=== PATIENT | female | born 1950 | race Caucasian/White ===

== ENCOUNTER 2019-10-12 15:01 | Emergency (ER) | payer MEDICARE, SELFPAY ==
--- NOTE | 2019-10-12 15:17 | ED.FEVER ---
HPI - Fever General Chief Complaint: Upper Respiratory Infection Stated Complaint: lightheaded,dizzy,cough, throwing up,fever Time Seen by Provider: 10/12/19 15:18 Source: patient Mode of arrival: ambulatory Limitations: no limitations History of Present Illness HPI Narrative: Previously well 68-year-old woman comes in today complaining of fever, cough, fatigue, body aches, nasal congestion and mild cough for 4 days. She states that she add vomiting at the onset but has not had some for 2 days. She has started to improve and has been eating regularly for the last 24 hours however today she felt lightheaded. She has not been back to work. She denies chest pain, shortness breath, productive cough, diarrhea, rash or joint swelling. MD elicited complaint: fever and malaise Onset (ago): day(s) (4) Context: sick contacts ( At work) Relieving factors: rest Associated symptoms: myalgias, nasal congestion, cough, nausea and vomiting Related Data Allergies Allergy/AdvReac Type Severity Reaction Status Date / Time nickel Allergy Intermediate RASH Verified 11/19/13 09:21 Review of Systems Constitutional: Constitutional: Denies chills, Reports fatigue and Reports fever(s) Eyes: Eyes: Denies change in vision and Denies photophobia ENT: Denies dysphagia, Reports nasal congestion and Denies sore throat Cardiovascular: Cardiovascular: Denies chest pain and Denies radiating jaw, neck or arm pain Respiratory: Respiratory: Reports cough, Denies dyspnea and Denies wheezing Gastrointestinal: Gastrointestinal: Denies abdominal pain, Denies diarrhea, Reports nausea and Reports vomiting Genitourinary: Genitourinary: Denies nocturia and Denies dysuria Musculoskeletal: Musculoskeletal: Denies back pain, Reports myalgias, Denies arthralgias and Denies joint swelling Integumentary/Breasts: Skin/Breast: Denies pruritus, Denies erythema and Denies rash Neurologic: Denies vertigo, Reports dizziness and Denies syncope Psychiatric: Psychiatric: Denies anxiety and Denies depression Endocrine: Endocrine: Denies polydipsia and Denies polyuria Hematologic/Lymphatic: Hematologic/Lymphatic: Denies easy bleeding and Denies easy bruising Allergic/Immunologic: Allergic/Immunologic: Denies lip swelling and Denies wheezing PMFSH Past Medical History Medical History History of breast cancer Radiation therapy Surgical History Surgical History S/P lumpectomy, left breast Social History Social History Smoking status: Never smoker Alcohol intake: never Substance use: never Living arrangements: alone Exam Const: General: healthy appearing, no acute distress and alert Nutritional Appearance: obese Orientation/consciousness: patient oriented x3 Limitations: no limitations HENMT: Ears: external ears normal, TM's normal bilaterally and EAC's normal Mouth: Yes Normal oral and palatal mucosa present and Yes moist mucous membranes Throat: posterior oropharynx normal Eyes: Conjunctivae: conjunctivae normal Pupils: Equal, round and reactive pupils present EOM: EOMs intact bilaterally Resp: Effort & Inspection: normal respiratory effort and not labored Auscultation: clear to auscultation bilaterally, no rales, no rhonchi and no wheezes Cardio: Rate: regular rate Rhythm: regular rhythm Heart sounds: no murmurs GI: Inspection: non-distended GI Palp: Yes Soft to palpation and No Tenderness to palpation present (GI) Skin: General skin exam: normal color, no jaundice and no pallor Rashes: no rashes Neuro: General: patient oriented x3, moves all extremities, no focal motor deficits and CN's II-XI intact bilaterally Speech: normal speech Extrem: General: normal to inspection and no clubbing, cyanosis or edema Psych: Appearance: grossly normal and well kempt Mental Status:
[2019-10-12 15:18] VITALS: BP 152/82; PULSE 74; RESP 13; TEMP 36.6; O2SAT 96
[2019-10-12 15:28] VITALS: BP 166/85; PULSE 71
[2019-10-12 15:30] VITALS: BP 152/82; PULSE 74
[2019-10-12 15:32] VITALS: BP 116/56; PULSE 86
[2019-10-12 15:59] LABS: Influenza Control Valid (Valid)
[2019-10-12 16:19] VITALS: RESP 14; O2SAT 97
== END 2019-10-12 16:15 | disposition home or self-care (01) ==
PROVIDERS: Emergency Provider Emergency Medicine; PCP Family Medicine
DX: E86.0 Dehydration (principal); B34.9 Viral infection, unspecified
CPT/HCPCS: 87804; 99283

== ENCOUNTER 2019-12-22 16:14 | Outpatient (CLI) | payer MEDICARE, SELFPAY ==
--- NOTE | ~2019-12-22 | XR_ITS ---
EXAMINATION: XR chest 2V EXAM DATE: 12/22/2019 16:36 INDICATION: Shortness of breath for one month. History of breast cancer. TECHNIQUE: Frontal and lateral projections of the chest obtained and reviewed. Comparison is made to prior examination from 03/25/2015. FINDINGS: Mild hyperinflation. The lungs are clear. There are no pleural effusions. The cardiomedi astinal silhouette is within normal limits. There is no pneumothorax suspected. The bones and soft tissues are unremarkable. IMPRESSION: Mild hyperinflation. Reviewed, dictated and finalized at location A. IMPRESSION: Mild hyperinflation.
== END 2019-12-22 16:15 | disposition home or self-care (01) ==
LOC: CHSIMG 16:19
PROVIDERS: PCP Family Medicine; Visit Provider Family Medicine
DX: R06.00 Dyspnea, unspecified (principal)
CPT/HCPCS: 71046

== ENCOUNTER 2019-12-23 12:30 | Outpatient (CLI) | payer MEDICARE, SELFPAY | END 2019-12-23 12:31 | disposition home or self-care (01) | LOC: CHSCARD 12:31 | PROVIDERS: PCP Family Medicine; Visit Provider Family Medicine | DX: R06.00 Dyspnea, unspecified (principal) | CPT/HCPCS: 94060; 94726; 94729 ==

== ENCOUNTER 2020-01-03 08:02 | Outpatient (CLI) | payer MEDICARE, SELFPAY | END 2020-01-03 08:03 | disposition home or self-care (01) | LOC: CHSCARD 08:03 | PROVIDERS: PCP Family Medicine; Visit Provider Family Medicine | DX: R06.02 Shortness of breath (principal); R94.31 Abnormal electrocardiogram [ECG] [EKG] | CPT/HCPCS: 78452; 93017; A9502; J2785 ==

== ENCOUNTER 2020-03-08 12:28 | Outpatient (CLI) | payer MEDICARE, SELFPAY ==
--- NOTE | ~2020-03-08 | MM_ITS ---
EXAMINATION: MM screening pravin BI w matthew HISTORY: Screening. History of left breast cancer. TECHNIQUE: Craniocaudal and mediolateral oblique 3-D tomosynthesis images were obtained and synthetic 2-D images were generated. CAD analysis was submitted and interpreted. COMPARISON: Comparison to multiple prior studies sequentially, with oldest reviewed study dated 10/04. BREAST PARENCHYMAL COMPOSITION: There are scattered areas of fibroglandular density. FINDINGS: Stable postoperative change in the upper outer quadrant of the left breast. There is no david dence of suspicious mass, calcification, or architectural distortion to suggest malignancy in either breast. There has been no suspicious interval change. IMPRESSION: 1. No mammographic evidence of malignancy. 2. Recommend routine screening mammography in one year. BI-RADS Category 2: Benign finding(s). Reviewed, dictated and finalized at location A.
== END 2020-03-08 12:29 | disposition home or self-care (01) ==
PROVIDERS: PCP Family Medicine; Visit Provider Family Medicine
DX: Z12.31 Encounter for screening mammogram for malignant neoplasm of breast (principal)
CPT/HCPCS: 77063; 77067

== ENCOUNTER 2024-07-08 20:33 | Emergency (ER) | payer MEDICARE, SELFPAY ==
--- NOTE | ~2024-07-08 | CT_ITS ---
EXAMINATION: CT brain wo con DATE: 07/08/2024 21:00 INDICATION: Lightheadedness. TECHNIQUE: Computed tomography (CT) of the head was performed without intravenous contrast. The mA wa s adjusted according to patient size. Iterative reconstruction technique was employed. The dose-lengt h product was 605.33 mGy-cm. COMPARISON: None FINDINGS: There is no intracranial hemorrhage, acute infarction, or abnormal intracranial mass lesion . The ventricles are normal in size. The orbits are normal. There is mucosal thickening in the parana landon sinuses. The mastoid air cells are normal. IMPRESSION: 1. Normal brain. Reviewed, dictated and finalized at location A. DIAL READING TEACHER IMPRESSION: 1. Normal brain.
[2024-07-08 20:35] VITALS: PULSE 65
[2024-07-08 20:37] VITALS: BP 158/82; PULSE 65; RESP 16; TEMP 37; O2SAT 97
--- NOTE | 2024-07-08 20:42 | ECG_ITS ---
Test Date: 2024-07-08 21:09:54 Measurements Intervals [place] Rate: 54 P: 12 OR: 155 QRS: 36 QRSD: 93 T: 15 QT: 412 QTc: 391 Interpretive Statements SINUS BRADYCARDIA BASELINE ARTIFACT- I, II, III, AVR, AVL, AVF BORDERLINE ECG No previous ECG available for comparison Electronically Signed On 07-09-2024 06:40:42 DISTRICT ATTORNEY by Juan Ricks D.O.
[2024-07-08 20:47] LABS: Glucose Point of Care 116 mg/dl (65-105)
--- NOTE | 2024-07-08 21:03 | ED.DIZZY ---
HPI - Dizziness General Chief Complaint: Dizziness Stated Complaint: Dizzy Time Seen by Provider: 07/08/24 20:38 Source: patient Mode of arrival: ambulatory Limitations: no limitations History of Present Illness HPI Narrative: this is a 73-year-old female with no significant past medical history presents to the ER because earlier this evening felt dizzy and faint while in the kitchen, patient denies any chest pain no shortness of breath no audible wheezing no sinus congestion no cough no nausea vomiting no abdominal pain no dysuria or hematuria. MD elicited complaint: lightheadedness Onset (ago): hour(s) Timing: sudden onset Severity: mild Description: sense of movement, lightheadedness and off-balance Related Data Allergies Allergy/AdvReac Type Severity Reaction Status Date / Time nickel Allergy Intermediate RASH Verified 11/19/13 09:21 Review of Systems Review of Systems: All systems reviewed & are unremarkable except as noted in HPI and below PMFSH Past Medical History Medical History History of breast cancer Radiation therapy Surgical History Surgical History S/P lumpectomy, left breast Social History Social History Smoking status: Never smoker Alcohol intake: never Substance use: never Living arrangements: alone Exam Const: General: healthy appearing and no acute distress Nutritional Appearance: well nourished Orientation/consciousness: patient oriented x3 Limitations: no limitations HENMT: Head: normal to inspection Face/Nose/Sinus: Normal external nose present Face and sinus: normal facial exam Eyes: Conjunctivae: conjunctivae normal Pupils: Equal, round and reactive pupils present EOM: EOMs intact bilaterally Direct Ophthalmoscopy: no photophobia Neck: Neck: normal visual inspection Chest: Chest palpation & inspection: normal inspection of the chest Resp: Effort & Inspection: normal respiratory effort Auscultation: clear to auscultation bilaterally Cardio: Rate: regular rate Rhythm: regular rhythm GI: GI Palp: Yes Soft to palpation Auscultation: normal bowel sounds Urinary Catheter: Urinary Catheter: patent and draining Skin: General skin exam: normal color Rashes: no rashes Neuro: General: patient oriented x3, moves all extremities, no meningeal signs, no focal motor deficits and CN's II-XI intact bilaterally Course Course Emergency Course: Patient had CT scan of the brain performed and reviewed, EKG performed and reviewed Patient received IV fluids Vital Signs Vital signs: Vital Signs Pulse Rate 65 07/08/24 20:35 Temperature 37.0 C 07/08/24 20:37 Pulse Rate 65 07/08/24 20:37 Respiratory Rate 16 07/08/24 20:37 Blood Pressure 158/82 H 07/08/24 20:37 Pulse Oximetry 97 07/08/24 20:37 Oxygen Delivery Room Air 07/08/24 20:37 MDM - Dizziness Lab Data Labs: Lab Results 07/08/24 Range/Units 20:45 POC Capillary Glucose 116 H (65-105) mg/dl Critical Care Time Critical Care Time Critical Care Time: No Discharge Plan Discharge Clinical Impression: Acute UTI Patient Disposition: Home, Self-Care Condition: Stable Instructions: Antibiotic Form, Urinary Tract Infection in Women (ED) Additional Instructions: advised to take medication as prescribed and follow with primary if symptoms persist or worsen. Prescriptions: New nitrofurantoin monohyd/m-cryst [Macrobid] 100 mg capsule 100 mg PO Q12H 7 Days Qty: 14 0RF Rx Instructions: must administer with a meal/food Follow-up/Referrals: Amador Dill MD [Primary Care Provider] - Time of Disposition: 21:46
[2024-07-08 21:05] LABS: Basophils Absolute Auto 0.04 K/mm3 (0.00-0.10); Basophils Percent Auto 0.4 % (0.0-1.0); Eosinophils Absolute Auto 0.12 K/mm3 (0.02-0.50); Eosinophils Percent Auto 1.2 % (1.0-6.0); Hematocrit 43.8 % (35.0-42.0); Hemoglobin 14.4 g/dL (11.7-13.8); Immature Granulocyte Absolute 0.04 K/mm3 (0.00-0.00); Immature Granulocyte Percent A 0.4 % (0.0-0.0); Lymphocytes Absolute Auto 1.21 K/mm3 (1.10-4.50); Lymphocytes Percent Auto 12.2 % (18.0-42.0); Mean Corpuscular HGB Conc 32.9 g/dL (32-36); Mean Corpuscular Hemoglobin 29.5 pg (27.0-31.0); Mean Corpuscular Volume 89.8 fL (78.0-102.0); Mean Platelet Volume 9.3 fl (9.2-11.8); Monocytes Absolute Auto 0.77 K/mm3 (0.10-0.90); Monocytes Percent Auto 7.8 % (2.0-11.0); Neutrophils Absolute Auto 7.71 K/mm3 (1.70-7.20); Platelet Count Result 304 K/mm3 (150-420); Red Blood Count 4.88 M/mm3 (4.20-5.40); Red Cell Distribution Width 13.6 % (11.6-14.4); White Blood Count 9.9 K/mm3 (4.8-10.8)
[2024-07-08] MEDS: SODIUM CHLORIDE 0.9% IV 1,000 ML 999 ML IV CONT (21:13)
[2024-07-08 21:21] LABS: Alanine Aminotransferase 17 U/L (14-59); Albumin Level 3.4 g/dL (3.4-5.0); Alkaline Phosphatase 76 U/L (46-116); Anion Gap 8 mmol/L (4-12); Aspartate Amino Transferase < 10 U/L (15-37); Blood Urea Nitrogen 16 mg/dL (7-18); Carbon Dioxide 31 mmol/L (21-32); Chloride 102 mmol/L (98-108); Estimated CRCL calculation 50 ml/min; Estimated Glomerular Filt Rate 46; Glucose 114 mg/dL (70-99); Osmolality Calculated 294 mOsm/kg (285-295); Potassium 3.8 mmol/L (3.5-5.1); Sodium 141 mmol/L (136-145); Total Protein 7.4 g/dL (6.4-8.2)
[2024-07-08 21:34] VITALS: BP 115/69; PULSE 68; RESP 18; O2SAT 98
[2024-07-08 21:37] LABS: Add Urine Microscopic? YES; Appearance Urine Clear (Clear); Bilirubin Urine Negative (Negative); Blood Urine Negative (Negative); Color Urine Yellow (Yellow); Glucose Urine UA Negative (Negative); Ketones Urine Trace (Negative); Leukocyte Esterase Ur Negative LEU/UL (Negative); Nitrate Urine Positive (Negative); Protein Urine Trace (Negative); Specific Grav Ur 1.025 (1.010-1.020); Urobilinogen Urine 0.2 mg/dL (0.2-1.0)
[2024-07-08 21:43] LABS: Bacteria Urine 2+ /hpf; RBC Urine 0-2 /hpf (0-2); Squamous Epithelial Cell Urine Many /hpf (Few)
[2024-07-08] MEDS: NITROFURANTOIN MONOHYD MACROCR 100 MG CAP PO (21:47)
[2024-07-08 21:58] VITALS: BP 118/74; PULSE 69; RESP 20; TEMP 36.6; O2SAT 97
--- NOTE | 2024-07-11 14:10 | PC.NURSE ---
PRELIMINARY URINE CULTURE: ESCHERICHIA COLI, WILL WAIT ON FINAL CULTURE AND SENSITIVITY PER DR. RAMEY
--- NOTE | 2024-07-12 13:30 | PC.NURSE ---
FINAL URINE CULTURE RESULTS: ISOLATE 1: GREATER THAN 100,000 CFU/ML OF ESCHERICHIA COLI. PER C&S AND DR. GARCIA, PT IS TO STOP TAKING MACROBID, AND START TAKING AUGMENTIN 875MG PO BID X 10 DAYS. RX WAS CALLED INTO [facility] IN [place] AT PT REQUEST. PT IS AWARE OF PLAN OF CARE, SHE VERBALIZED UNDERSTANDING.
== END 2024-07-08 21:58 | disposition home or self-care (01) ==
PROVIDERS: Emergency Provider Emergency Medicine; PCP Family Medicine
DX: N39.0 Urinary tract infection, site not specified (principal)
CPT/HCPCS: 36415; 70450; 80053; 81001; 82948; 85025; 87077; 87086; 87088; 87186; 93005; 96360; 99284; A9270; J7030